=== PATIENT | male | born 1960 | race Caucasian/White ===

== ENCOUNTER → 2025-02-15 10:51 | Outpatient (BNVA) | payer MEDICAID, SELFPAY | PROVIDERS: Family Provider Counselor Professional; Referring Provider Family Medicine; Visit Provider Dermatology | DX: L82.1 Other seborrheic keratosis (principal); L72.0 Epidermal cyst; L57.8 Other skin changes due to chronic exposure to nonionizing radiation; D48.5 Neoplasm of uncertain behavior of skin; L57.0 Actinic keratosis | CPT/HCPCS: 11102; 17000; 99203 ==

== ENCOUNTER → 2025-03-12 16:25 | Outpatient (BNVA) | payer MEDICAID, SELFPAY | PROVIDERS: Family Provider Counselor Professional; Visit Provider Dermatology | DX: C44.319 Basal cell carcinoma of skin of other parts of face (principal) | CPT/HCPCS: 99212 ==

== ENCOUNTER → 2025-03-26 11:31 | Outpatient (BNVA) | payer MEDICAID, SELFPAY | PROVIDERS: Family Provider Counselor Professional; Visit Provider Dermatology | DX: L20.9 Atopic dermatitis, unspecified (principal); L29.89 Other pruritus; L23.1 Allergic contact dermatitis due to adhesives | CPT/HCPCS: 99213 ==

== ENCOUNTER → 2025-04-09 11:19 | Outpatient (BNVA) | payer MEDICAID, SELFPAY | PROVIDERS: Family Provider Counselor Professional; Visit Provider Dermatology | DX: C44.319 Basal cell carcinoma of skin of other parts of face (principal) | CPT/HCPCS: 99213 ==

== ENCOUNTER 2025-10-03 11:30 | Emergency (ER) | payer MEDICARE, MEDICAID, SELFPAY ==
[2025-10-03 11:32] VITALS: BP 154/96; PULSE 98; RESP 18; TEMP 36.4; O2SAT 98
--- OUTSIDE RECORDS SUMMARY | 2025-10-03 11:38 | XMS_ITS | Clinical Summary ---
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
--- OUTSIDE RECORDS SUMMARY | 2025-10-03 11:38 | XMS_ITS | Clinical Summary ---
Author Organization [employer] Address [address] [place] [address] Phone Care Team Providers Care Service Observer Name Role Phone Gurdeep Uribe Primary Care Provider [phone] Allergies No known active allergies Medications doxycycline (Vibra-Tabs) 100 mg tablet Take 100 mg by mouth 2 (two) times a day. 03/05/2025 Active losartan (Cozaar) 25 mg tablet Take 25 mg by mouth 1 (one) time each day. 02/28/2025 Active aspirin 81 mg EC tablet Take 81 mg by mouth 1 (one) time each day. 01/31/2025 Active atorvastatin (Lipitor) 40 mg tablet Take 40 mg by mouth 1 (one) time each day. 02/28/2025 Active co-enzyme Q-10 30 mg capsule Take 400 mg by mouth 1 (one) time each day. Active cholecalciferol, vitamin D3, (VITAMIN D3 ORAL) Take 1 tablet by mouth 1 (one) time each day. Active cyanocobalamin (Vitamin B-12) 1,000 mcg tablet Take 1,000 mcg by mouth 1 (one) time each day. Active ibuprofen (Advil,Motrin) 200 mg tablet Take 200 mg by mouth if needed for mild pain (1-3). Active acetaminophen (Tylenol) 500 mg tablet Take 500 mg by mouth if needed for mild pain (1-3). Active nitroglycerin (Nitrostat) 0.[address] 0.3 mg under the tongue if needed for chest pain. Active Social History Tobacco Use Types Packs/Day Years Used Date Smoking Tobacco: Every Day Cigarettes 0.5 40.9 Started: 1984 Smokeless Tobacco: Never Tobacco Cessation:Ready to Q uit: Not Asked; Counseling Given: Not Answered Alcohol Use Standard Drinks/Week Comments Never 0 (1 standard drink = 0.6 oz pur e alcohol) PHQ-2 Answer Date Recorded Patient Health Questionnaire-2 Score 0 03/07/2025 [facility] - Mental Health Answer Date Recorde d Little interest or pleasure in doing things Not at all 03/07/2025 Feeling down, depressed, or hopeless Not at all 03/07/2025 Feeling of Stress Not on file 03/07/2025 Sex and Gender Information Value Date Recorded Sex Assigned at Not on file Legal Sex Male 3:06 PM CDT Gender Identity Not on file Sexual Orientation Not on file Last Filed Vital Signs Vital Sign Reading Time Taken Comments Blood Pressure 138/90 03/07/2025 3:53 PM CDT Pulse 94 03/07/2025 3:52 PM CDT Temperature 36.7 C (98.1 F) 03/07/2025 3:52 PM CDT Respiratory Rate 18 03/07/2025 3:52 PM CDT Oxygen Saturation 98% 03/07/2025 3:52 PM CDT Inhaled Oxygen Concentration - - Weight 87.5 kg (193 lb) 03/07/2025 3:52 PM CDT Height 182.9 cm (6') 03/07/2025 3:52 PM CDT Body Mass Index 26.18 03/07/2025 3:52 PM CDT Plan of Treatment Health Maintenance Due Date Last Done Comments CT Colonography 1960 Colonoscopy 1960 Colorectal Cancer Screening 1960 Creatinine Level 1960 FIT-DNA 1960 FIT 1960 FOBT 1960 Lipid Panel 1960 Potassium Level 1960 Sigmoidoscopy 1960 MMR Vaccines (1 of 1 - Stand arley series) 1961 DTaP,Tdap,and Td Vaccines (1 - Tdap) 1967 Varicella Vaccines (1 of 2 - 13+ 2-dose series) 1973 Diabetes Screening 1978 Social Drivers of Health (SDoH) 1978 Pneumococcal Vaccine: 50+ Ye ars (1 of 2 - PCV) 1979 Pneumococcal Vaccine (1 of 2 - PCV) 1979 [facility] Lung Cancer Screening ared Decision Making 2010 Zoster Vaccines (1 of 2) 2010 RSV Vaccines (1 - Risk 60-74 years 1-dose series) 2020 Medicare Initial Physical (I PPE) G0402 04/22/2025 Complete Fall Risk Assessment 2025 COVID-19 Vaccine (1 - 2023-2 5 season) 2025 Influenza Vaccine (#1) 2025 Depression Screening 03/08/2026 03/07/2025 HIB Vaccines Aged Out No longer eligi ble based on patient's age to complete this topic HPV Vaccines Aged Out No longer eligi ble based on patient's age to complete this topic Hepatitis A Vaccines Aged Out No long er eligible based on patient's age to complete this topic Hepatitis B Vaccines Aged Out No long er eligible based on patient's age to complete this topic IPV Vaccines Aged Out No longer eligi ble based on patient's age to complete this topic Meningococcal B Vaccine Aged Out No l onger eligible based on patient's age to complete this topic Meningococcal Vaccine Aged Out No amber kurt eligible based on patient's age to complete this topic Rotavirus Vaccines Aged Out No longer eligible based on patient's age to complete this topic Insurance MEDICARE Care Teams Service Observer Relationship Specialty Start Date End Date Gurdeep Uribe [address] [place], [place] [address] PCP - General 02/09/25
--- NOTE | 2025-10-03 11:42 | ECG_ITS ---
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 Measurements Intervals Caro Rate: 92 P: 47 AL: 149 QRS: -1 QRSD: 90 T: 74 QT: 335 QTc: 414 Interpretive Statements SINUS RHYTHM MINIMAL ST DEPRESSION [0.025+ mV ST DEPRESSION] No previous ECG available for comparison Electronically Signed On 10-05-2025 19:52:30 STOCK DRIVER by Christopher Ron M.D. [id number]
--- NOTE | 2025-10-03 11:52 | W.ED.RECABL ---
HPI - Recheck/Abnormal Lab/Rx General: Chief Complaint: Recheck/Abnormal Lab/Rx Stated Complaint: Dr Doss Blood Cloat R lower ABD R Lung Time Seen by Provider: 10/03/25 11:52 History of Present Illness: 65-year-old man with a history of coronary artery disease status post stents, hyperlipidemia and hypertension who presents emergency room at the urging of his primary provider. He had had a CT scan done that family reports he had a blood clots, a mass in his lung and possible masses in his liver. These images are not available to me. They tell me they were told to just go to the oncology clinic and check-in. They did not have anything scheduled. Apparently there were no records sent to the oncology clinic at this time. He has been having some chest pain and shortness of breath. No altered mental status. No fevers. He is not requiring any oxygen at this time and is not tachycardic. Related Data Home Medications ?Medication ?Instructions ?Recorded ?Confirmed aspirin 81 mg tablet,delayed 81 mg PO DAILY 10/03/25 10/03/25 release atorvastatin 40 mg tablet 40 mg PO BEDTIME 10/03/25 10/03/25 cholecalciferol (vitamin D3) 1,250 50,000 unit PO Q7D 10/03/25 10/03/25 mcg (50,000 unit) capsule coQ10 (ubiquinol) 200 mg capsule 400 mg PO BEDTIME 10/03/25 10/03/25 cyanocobalamin (vitamin B-12) 1,000 mcg PO DAILY 10/03/25 10/03/25 1,000 mcg tablet (Vitamin B-12) folic acid 1 mg tablet 1 mg PO DAILY 10/03/25 10/03/25 hydrocodone 10 mg-acetaminophen 1 tab PO Q6H PRN Pain 10/03/25 10/03/25 325 mg tablet losartan 25 mg tablet 25 mg PO QAM 10/03/25 10/03/25 nitroglycerin 0.4 mg sublingual 0.4 mg sublingual Q5M PRN Chest 10/03/25 10/03/25 tablet (Nitrostat) Pain prednisone 20 mg tablet See Rx Instructions .Route .COMPLEX 10/03/25 10/03/25 pregabalin 100 mg capsule 100 mg PO Q12H PRN nerve pain 10/03/25 10/03/25 Previous Rx's ?Medication ?Instructions ?Recorded apixaban 5 mg (74 tabs) tablets in 5 mg PO BID #74 ea 10/03/25 a dose pack (ascentify DVT-PE Treat 30D Start) oxycodone 5 mg tablet 5 mg PO Q8H PRN pain #20 tabs 10/03/25 polyethylene glycol 3350 17 17 g PO DAILY #510 grams 10/03/25 gram/dose oral powder (Miralax) Allergies Allergy/AdvReac Type Severity Reaction Status Date / Time No Known Allergies Allergy Verified 10/03/25 11:46 Review of Systems Narrative: Constitutional symptoms: Negative except as documented in HPI. Skin symptoms: Negative except as documented in HPI. Eye symptoms: Negative except as documented in HPI. ENMT symptoms: Negative except as documented in HPI. Respiratory symptoms: Negative except as documented in HPI. Cardiovascular symptoms: Negative except as documented in HPI. Gastrointestinal symptoms: Negative except as documented in HPI. Genitourinary symptoms: Negative except as documented in HPI. Musculoskeletal symptoms: Negative except as documented in HPI. Neurologic symptoms: Negative except as documented in HPI. Psychiatric symptoms: Negative except as documented in HPI. Endocrine symptoms: Negative except as documented in HPI. PFSH ED PFSH: Social History Smoking and tobacco/nicotine status: current every day tobacco/nicotine user Physical Exam Narrative: EXAM NARRATIVE: General: Alert, no acute distress. Skin: Warm, dry. Head: Normocephalic, atraumatic. Neck: Supple, trachea midline. Eye: Extraocular movements are intact. Ears, nose, mouth and throat: mucosa moist. Cardiovascular: Regular, Normal peripheral perfusion. Respiratory: Lungs are clear to auscultation, respirations are non-labored, breath sounds are equal, Symmetrical chest wall expansion. Gastrointestinal: Soft, Nontender, Non distended Musculoskeletal: Normal ROM, no deformity. Neurological: Alert and oriented, No focal neurological deficit observed. Psychiatric: Cooperative, appropriate mood & affect. Course Vital Signs: Vital signs: Vital Signs Temperature 97.6 F 10/03/25 11:32 Pulse Rate 88 10/03/25 13:08 Respiratory Rate 17 10/03/25 12:22 Blood Pressure 146/102 10/03/25 13:08 Pulse Oximetry 93 10/03/25 13:08 Oxygen Delivery Me thod Room Air 10/03/25 13:08 MDM - Recheck/Abnormal Lab/Rx Medical Decision Making Medical decision making Patient's reason for coming to the emergency room: Sent from clinic. Social determinants: Patient is retired. I reviewed the patient's medical record. Patient has no previous records at this institution. I reviewed the patient's current home meds Patient tells me he does not currently take many medications. He has not been placed on Eliquis yet. Alternate historians: History from family and from the patient. Differential diagnosis: including but not limited to and based on the above HPI, review of systems and physical exam: I am ordering a CT scan so that this will be available here for viewing. And make sure there is been no major changes. I currently only have the report from the family. Also basic lab work prior to initiating Eliquis therapy. Orders placed to evaluate differential diagnosis based on the above differential, HPI and physical exam Lab Review: Laboratory results were reviewed and interpreted by myself the emergency room physician. Mild leukocytosis. No anemia. No renal failure. CT of the chest abdomen pelvis mild bilateral pulmonary embolism burden slightly improved from a couple days ago. Apparently these films from [facility] were available to the radiologist. Large neoplastic mass centered in the right upper lobe. Lymphadenopathy. Other findings as in the report. This was reviewed and interpreted by myself the emergency room physician. I also reviewed the radiology report. Assessment of risk: Level of risk: High risk patient. Multiple comorbidities. New diagnosis of cancer. Unestablished with either pulmonary or oncology. Hospitalization considerations: Patient is not requiring any oxygen and vitals are normal. He needs some pain medications for home. Reexamination: Patient remained stable. No increased work of breathing. No altered mental status. No focal motor deficits. I spoke extensively with the patient's family and the patient about the steps needed to be done next. First starting on Eliquis and he will need to be on this for couple of weeks before he can have bronchoscopy and biopsy. After biopsy he will need to see oncology. Consultation: I spoke with Dr. Escalera with oncology. He is now aware of the patient and recommends that he first go to pulmonology for biopsy. Consultation: I spoke with Dr. Javed with pulmonology. She will see the patient later this week to establish and schedule bronchoscopy and biopsy after the patient has been on anticoagulation for couple of weeks Assessment and plan: Lung mass Pulmonary embolism Liver metastatic disease ?Morphine, Zofran, oxycodone in the emergency room first dose of Eliquis as well - Discharged home - Discussed plan with patient. Answered any questions. - Evaluation and treatment of this problem were appropriate in the emergency setting. Lab Data 10/03/25 12:00 10/03/25 12:00 Radiology Impressions Chest/Abdomen/Pelvis CT 10/03/25 11:57 IMPRESSION: 1. Mild bilateral pulmonary embolic burden. Slightly improved since the prior CT of 10/01/2025. 2. No RIGHT heart strain. 3. Large neoplastic mass centered in the RIGHT upper lobe measures 7.2 x 5.0 x 6.1 cm. This was recently described on 10/01/2025 without change. There is extension into the hilum and circumferential encasement of the hilar structures. 4. Mediastinal and hilar lymphadenopathy. 5. Highly suspicious for hepatic metastasis. 6. Extensive bone metastasis. Largest metastatic sites involve the iliac crest, sacrum and several vertebral bodies including T8, L2, L5, S1 and S2. 7. Dense atherosclerotic calcification of the aorta and origins of the SMA and celiac axis. Suspect component of stenosis at the SMA. Laboratory Results WBC 13.90 10^3/uL (3.29-11.43) H 10/03/25 12:00 RBC 4.23 10^6/uL (3.85-5.65) 10/03/25 12:00 Hgb 13.10 g/dL (11.27-16.99) 10/03/25 12:00 Hct 40.9 % (37-53) 10/03/25 12:00 MCV 96.7 fl (82-101) 10/03/25 12:00 MCH 31.0 pg (27-33) 10/03/25 12:00 MCHC 32.0 g/dL (30-55) 10/03/25 12:00 RDW 15.6 % (12.1-15.1) H 10/03/25 12:00 Plt Count 560 10^3/cmm (157-399) H 10/03/25 12:00 MPV 8.9 fL (7.4-10.4) 10/03/25 12:00 Neut % (Auto) 74.6 % 10/03/25 12:00 Lymph % (Auto) 17.0 % 10/03/25 12:00 [place] % (Auto) 6.9 % 10/03/25 12:00 Eos % (Auto) 0.5 % 10/03/25 12:00 Baso % (Auto) 0.3 % 10/03/25 12:00 Neut # (Auto) 10.37 10^3/uL (1.8-7.7) H 10/03/25 12:00 Lymph # (Auto) 2.4 10^3/uL (0.8-4.8) 10/03/25 12:00 [place] # (Auto) 1.0 10^3/uL (0.2-0.9) H 10/03/25 12:00 Eos # (Auto) 0.1 10^3/uL (0.0-0.8) 10/03/25 12:00 Baso # (Auto) 0.0 10^3/uL (0.0-0.1) 10/03/25 12:00 Nucleated RBC % (auto) 0 % 10/03/25 12:00 Nucleated RBCs # 0.0 /100WBC 10/03/25 12:00 PT 12.90 SECONDS (12.1-14.9) 10/03/25 12:00 INR 0.91 (0.8-1.2) 10/03/25 12:00 APTT 27.5 SECONDS (23.9-36.7) 10/03/25 12:00 Sodium 139 mmol/L (136-145) 10/03/25 12:00 Potassium 4.8 mmol/L (3.5-5.1) 10/03/25 12:00 Chloride 102 mmol/L (98-107) 10/03/25 12:00 Carbon Dioxide 22 mmol/L (22-29) 10/03/25 12:00 Anion Gap 19.8 (5-19) H 10/03/25 12:00 BUN 16 mg/dL (8-23) 10/03/25 12:00 Creatinine 0.9 mg/dL (0.7-1.2) 10/03/25 12:00 GFR Calculation 84.7 mL/min (90-130) L 10/03/25 12:00 Glucose 110 mg/dL (65-115) 10/03/25 12:00 Calculated Osmolality 290 mOsm/kg (285-295) 10/03/25 12:00 Calcium 10.3 mg/dL (8.5-10.5) 10/03/25 12:00 Total Bilirubin 0.3 mg/dL (0.15-1.2) 10/03/25 12:00 AST 12 U/L (0-40) 10/03/25 12:00 ALT 16 U/L (0-41) 10/03/25 12:00 Alkaline Phosphatase 382 U/L (40-130) H 10/03/25 12:00 Total Protein 8.1 g/dL (6.6-8.7) 10/03/25 12:00 Albumin 4.3 g/dL (3.5-5.2) 10/03/25 12:00 Globulin 3.8 g/dL (1.3-4.6) 10/03/25 12:00 All radiology interpretation(s) finalized by discharge Discharge Plan Discharge Patient Disposition: Home Clinical Impression: Pulmonary embolism, Lung mass Condition: Stable Prescriptions: New oxycodone 5 mg tablet 5 mg PO Q8H PRN (Reason: pain) Qty: 20 0RF Eliquis DVT-PE Treat 30D Start 5 mg (74 tabs) tablets,dose pack 5 mg PO BID Qty: 74 0RF Rx Instructions: 2 tabs (10 mg) BID x 7 days, then 1 tab BID polyethylene glycol 3350 [Miralax] 17 gram/dose powder 17 g PO DAILY Qty: 510 0RF Rx Instructions: Take 1 scoop daily while taking pain medications. No Action atorvastatin 40 mg tablet 40 mg PO BEDTIME prednisone 20 mg tablet See Rx Instructions .ROUTE .COMPLEX Rx Instructions: TAKE 3 TABLETS BY MOUTH ONCE DAILY IN THE MORNING FOR 3 DAYS, THEN 2 TABS IN THE MORNING FOR 3 DAYS, THEN 1 TAB IN THE MORNING FOR 3 DAYS, THEN ONE-HALF TAB IN THE MORNING FOR 3 DAYS, AND THEN STOP cyanocobalamin (vitamin B-12) [Vitamin B-12] 1,000 mcg Tablet 1,000 mcg PO DAILY hydrocodone-acetaminophen 10-325 mg tablet 1 tab PO Q6H PRN (Reason: Pain) aspirin 81 mg tablet,delayed release (DR/EC) 81 mg PO DAILY losartan 25 mg tablet 25 mg PO QAM nitroglycerin [Nitrostat] 0.4 mg Tablet, Sublingual 0.4 mg SUBLINGUAL Q5M PRN (Reason: Chest Pain) Rx Instructions: do not exceed 3 doses per episode folic acid 1 mg tablet 1 mg PO DAILY pregabalin 100 mg capsule 100 mg PO Q12H PRN (Reason: nerve pain) cholecalciferol (vitamin D3) 1,250 mcg (50,000 unit) capsule 50,000 unit PO Q7D coQ10 (ubiquinol) 200 mg Capsule 400 mg PO BEDTIME Discharge Orders: Discharge ED (Routine); Ordered 10/03/25 Ordered By: Yaneli Loo Referrals: Flo Javed MD [Physician, Pulmonology] - 1-3 days Referral Note: Please call for follow-up appointment with pulmonology. Naomi Schroeder LPC [Family Provider, Psychology] Patsy Escalera MD [Hospitalist, Oncology] Referral Note: Please call for follow-up appointment with oncology. You may not need to be seen until after your biopsy but go ahead and schedule now Discharge Diet: Usual diet Discharge Activity: Increase activity as tolerated Patient Instructions: Apixaban (By mouth) (Eliquis), Pulmonary Embolism (ED), Opioid Safety, Pain Management, Patient Portal & Niko Instructions Activity Restrictions/Additional Instructions: Thank you for choosing [facility] for your healthcare needs today. You have been screened and evaluated and felt safe for discharge. Health conditions do change or evolve sometimes and as such it is important that you follow up with your Primary Doctor to be re checked, 3-5 days is a general good time frame for follow up. You are always welcome to return to the ED for re assessment if your symptoms are worsening or you have new concerns Print Language: Senegalese Coding Level of Care Code ED Appetizer Packer for Gerri Copeland
--- NOTE | 2025-10-03 11:57 | CT_ITS ---
WS: [id number] CTA CHEST WITH CT ABDOMEN AND PELVIS. HISTORY: Short of breath. Possible malignancy. TECHNIQUE: CT angiogram is performed through the chest. Additional imaging is performed through the abdomen and pelvis with IV contrast. Sagittal and coronal reformats have been submitted. MIP imaging also reviewed. All CT scans at [facility] use at least one of these dose optimization techniques: automated exposure control; mA and/or kV adjustment per patient size (includes targeted exams where dose is matched to clinical indication); or iterative reconstruction. Contrast: Omnipaque 350; 95 cc IV. DLP: 995.30 mGy.cm COMPARISON: 10/01/2025 Chest CTA: Good opacification of the pulmonary arteries. Patient has known pulmonary emboli described on 10/01/2025. Pulmonary arteries are normal size. No central pulmonary emboli. Scattered pulmonary emboli are noted predominantly in the segmental and subsegmental branches of the RIGHT lower lobe. Small embolic burden in the upper lung holder. Mild improvement in the embolic burden since 10/01/2025. Normal size pulmonary artery. No RIGHT heart strain is evident. No pericardial or pleural effusions. Reidentified mediastinal and hilar lymphadenopathy. Paratracheal and aortopulmonary window lymph nodes. Largest lymph node in the AP window is 2.6 cm. Subcarinal lymph node 2.3 cm. Bilateral hilar lymphadenopathy. Large mass centered in the RIGHT upper lobe extending along the fissure and into the superior segment RIGHT lower lobe. Mass measures 7.2 x 5.0 x 6.1 cm and extends into the RIGHT hilum. There is encasement of the RIGHT bronchovascular structures. Small bilateral perifissural nodules. Mild pleural thickening right thorax. Abdomen CT: Normal size liver. There is hypodense lesions in the liver suspicious for metastatic disease. The most concerning in the RIGHT lobe measures 1.6 x 1.4 cm. There are a few additional scattered hypodensities which could be metastatic sites or cysts. Portal vein is normal. No intrahepatic duct dilatation. Normal gallbladder. Normal spleen. No adrenal mass. There is very tiny possible developing nodule in the LEFT adrenal gland. Normal pancreas. No pancreatic duct dilatation. No renal obstruction or mass. Moderate atherosclerosis aorta. Calcifications at the origin of the celiac axis and SMA. Stenosis at the SMA suspected. No GI tract obstruction. There is no ascites or adenopathy identified in the abdomen or pelvis. Pelvic CT: No free fluid. Prostate gland enlargement and heterogeneity. Negative urinary bladder. Extensive bony metastasis is identified. Destructive bone lesion in the LEFT ilium measures 4.9 x 2.8 cm. There is a solid soft tissue component with destruction of the bone. Smaller destructive bone lesion in the RIGHT ilium. Metastatic disease posterior S1 and S2. L2 metastatic changes. There is loss of the normal cortex of the superior and inferior endplates. L5 LEFT lateral vertebral body metastatic site with extension into the posterior element. T8 metastasis with osseous destruction. Sternum appears intact. CT/CT angio chest w abd pel w con IMPRESSION: 1. Mild bilateral pulmonary embolic burden. Slightly improved since the prior CT of 10/01/2025. 2. No RIGHT heart strain. 3. Large neoplastic mass centered in the RIGHT upper lobe measures 7.2 x 5.0 x 6.1 cm. This was recently described on 10/01/2025 without change. There is ext ension into the hilum and circumferential encasement of the hilar structures. 4. Mediastinal and hilar lymphadenopathy. 5. Highly suspicious for hepatic metastasis. 6. Extensive bone metastasis. Largest metastatic sites involve the iliac crest , sacrum and several vertebral bodies including T8, L2, L5, S1 and S2. 7. Dense atherosclerotic calcification of the aorta and origins of the SMA and celiac axis. Suspect component of stenosis at the SMA.
[2025-10-03 12:12] LABS: Hematocrit 40.9 % (37-53); Hemoglobin 13.10 g/dL (11.27-16.99); Mean Corpuscular HGB Conc 32.0 g/dL (30-55); Mean Corpuscular Hemoglobin 31.0 pg (27-33); Mean Corpuscular Volume 96.7 fl (82-101); Nucleated Red Blood Cells % 0 %; Platelet Count 560 10^3/cmm (157-399); Red Blood Count 4.23 10^6/uL (3.85-5.65); White Blood Count 13.90 10^3/uL (3.29-11.43)
[2025-10-03] MEDS: ondansetron 2 mg/ML SDV 2 mL 4 MG IVP (12:21)
[2025-10-03 12:22] VITALS: RESP 17; O2SAT 97
[2025-10-03 12:22] LABS: INR 0.91 (0.8-1.2); Prothrombin Time 12.90 SECONDS (12.1-14.9)
[2025-10-03] MEDS: morphine 4 mg/mL SDV 1 mL IVP (12:22)
[2025-10-03 12:23] LABS: Partial Thromboplastin Time 27.5 SECONDS (23.9-36.7)
[2025-10-03 12:27] LABS: Alanine Aminotransferase 16 U/L (0-41); Albumin Level 4.3 g/dL (3.5-5.2); Alkaline Phosphatase 382 U/L (40-130); Anion Gap 19.8 (5-19); Aspartate Amino Transferase 12 U/L (0-40); Blood Urea Nitrogen 16 mg/dL (8-23); Calcium 10.3 mg/dL (8.5-10.5); Carbon Dioxide 22 mmol/L (22-29); Chloride 102 mmol/L (98-107); Globulin 3.8 g/dL (1.3-4.6); Glucose 110 mg/dL (65-115); Osmolality Calculated 290 mOsm/kg (285-295); Potassium 4.8 mmol/L (3.5-5.1); Sodium 139 mmol/L (136-145); Total Protein 8.1 g/dL (6.6-8.7)
--- NOTE | 2025-10-03 12:27 | PC.PHAR ---
Pt states he has not taken any medications for a long time since they just keep giving him more pills to take. Pt presented a medication list that matches most of the medications he has had filled at [facility] in [place] [phone]. Pt has his rx bottle for [place] 10-325 and he has taken it today, but says it doesn't do any good.
[2025-10-03] MEDS: iohexol 350 mg/mL 500 mL Btl (per mL) IV (12:40)
[2025-10-03 13:08] VITALS: BP 146/102; PULSE 88; O2SAT 93
[2025-10-03] MEDS: oxyCODONE 5 mg IR Tab/Cap 10 MG PO (14:04)
[2025-10-03 14:09] VITALS: BP 150/99; PULSE 89; O2SAT 96
== END 2025-10-03 14:11 | disposition home or self-care (01) ==
PROVIDERS: Family Medicine; Emergency Provider Emergency Medicine; Family Provider Counselor Professional
DX: I26.99 Other pulmonary embolism without acute cor pulmonale (principal); R91.8 Other nonspecific abnormal finding of lung field; Z79.82 Long term (current) use of aspirin; Z72.0 Tobacco use; E78.5 Hyperlipidemia, unspecified; I25.10 Atherosclerotic heart disease of native coronary artery without angina pectoris; Z95.5 Presence of coronary angioplasty implant and graft
CPT/HCPCS: 71275; 74177; 80053; 85025; 85610; 85730; 93005; 96374; 96375; 99285; J2270; J2405; J9999

== ENCOUNTER → 2025-10-09 15:26 | Outpatient (BNVA) | payer MEDICARE, MEDICAID, SELFPAY | PROVIDERS: Family Provider Counselor Professional; Visit Provider Internal Medicine | DX: R91.8 Other nonspecific abnormal finding of lung field (principal); F17.200 Nicotine dependence, unspecified, uncomplicated; Z86.711 Personal history of pulmonary embolism; Z79.01 Long term (current) use of anticoagulants; Z79.82 Long term (current) use of aspirin | CPT/HCPCS: 99204; Q3014 ==

== ENCOUNTER 2025-10-19 10:57 | Outpatient (CLI) | payer MEDICARE, MEDICAID, SELFPAY ==
--- NOTE | 2025-10-19 11:00 | CT_ITS ---
WS: [id number] CT CHEST TECHNIQUE: Noncontrast CT of the chest with coronal and sagittal reformatted images. CLINICAL INFORMATION: Upcoming ION COMPARISON: CTA 10/03/[address] 10/01/2025 DLP: All CT scans at [facility] use at least one of these dose optimization techniques: automated exposure control; mA and/or kV adjustment per patient size (includes targeted exams where dose is matched to clinical indication); or iterative reconstruction. FINDINGS: Again seen is the large lung mass in the RIGHT upper lobe measuring 6.5 x 7.5 cm similar to the recent studies. This extends along the RIGHT fissure and to the RIGHT hilum with circumferential encasement of the RIGHT hilum. Involvement of the RIGHT distal mainstem and upper lobe bronchi. Involvement of the bronchus intermedius. Bilateral perifissural nodules. Again seen is mediastinal and hilar lymphadenopathy. Enlarged paratracheal and AP window lymph nodes. Subcarinal lymphadenopathy. Partially visualized hepatic metastasis. Bony metastasis again seen T8 vertebral body and upper lumbar spine L2. Dense vascular calcification. Aortic calcification. Coronary calcification. Adrenal glands are normal. Small esophageal hiatal hernia. No axillary lymphadenopathy. Mild chronic emphysematous changes. CT/CT chest ION (PULM ONLY) [id number] IMPRESSION: Images obtained for 3D navigational bronchoscopy purposes
== END 2025-10-19 10:58 | disposition home or self-care (01) ==
LOC: RAD 10:59
PROVIDERS: PCP Family Medicine; Visit Provider Internal Medicine
DX: R91.8 Other nonspecific abnormal finding of lung field (principal); R59.0 Localized enlarged lymph nodes; I70.0 Atherosclerosis of aorta; I25.10 Atherosclerotic heart disease of native coronary artery without angina pectoris; K44.9 Diaphragmatic hernia without obstruction or gangrene; J43.9 Emphysema, unspecified; C79.51 Secondary malignant neoplasm of bone
CPT/HCPCS: 71250

== ENCOUNTER 2025-10-22 06:00 | Day surgery (SDC) | payer MEDICARE, MEDICAID, SELFPAY ==
[2025-10-22] VITALS (11 sets, daily range): BP systolic 90–159; BP diastolic 62–98; PULSE 88–98; RESP 13–20; TEMP 36.4–37; O2SAT 97–100; BMI 25.0
--- NOTE | 2025-10-22 06:50 | SC_ITS ---
WS: [id number] Exam: C-arm FL for Bronchoscopy Date/Time of Exam: 10/22/2025 6:50 AM Reason For Exam: ION DLP: Single AP C-arm image of the upper RIGHT chest is submitted. The image was obtained for intraoperative purposes.
[2025-10-22 07:05] LABS: Hematocrit 39.6 % (37-53); Hemoglobin 12.80 g/dL (11.27-16.99); Mean Corpuscular HGB Conc 32.3 g/dL (30-55); Mean Corpuscular Hemoglobin 30.4 pg (27-33); Mean Corpuscular Volume 94.1 fl (82-101); Nucleated Red Blood Cells % 0 %; Platelet Count 597 10^3/cmm (157-399); Red Blood Count 4.21 10^6/uL (3.85-5.65); White Blood Count 14.31 10^3/uL (3.29-11.43)
[2025-10-22 07:20] LABS: INR 0.93 (0.8-1.2); Prothrombin Time 13.10 SECONDS (12.1-14.9)
--- NOTE | 2025-10-22 07:50 | ANES.PREANE2 ---
Pre-Anesthetic Assessment Height/Weight: Height 1.85 m Weight 86.183 kg Temp Pulse Resp BP Pulse Ox O2 Del Method 98.6 F 98 18 159/98 99 Room Air 10/22/25 06:42 10/22/25 06:42 10/22/25 06:42 10/22/25 06:42 10/22/25 06:42 10/22/25 06:42 Operation Date: 10/22/25 08:00 Proposed Procedures p Ion - Ion Bronch w/ EBUS(Not Applicable) - Flo Javed MD s Bronchoscopy(Not Applicable) - Flo Javed MD s Ebus(Not Applicable) - Flo Javed MD Familial anesthetic complications: None Was Beta José Luis taken within 24 hours: N/A Was Clonidine taken within 24 hours: N/A Last intake: Intake Last Liquid Date 10/21/25 Last Liquid Time 16:00 Last Solid Date 10/21/25 Last Solid Time 16:00 Social Tobacco and No alcohol Exam alert, oriented x 3, clear to auscultation bilaterally and regular rate & rhythm Airway Mallampati: Class I Dentition: false CV/HEM Coronary Artery Disease (stents in 2022) and Hypertension Metabolic Hyperlipidemia Anesthetic Plan ASA status: 3 Anesthesia: General Risk of > 500 ml blood loss (7ml/kg in children): No Medications/Allergies Home Medications ?Medication ?Instructions ?Recorded ?Confirmed ?Last Taken ?Type apixaban 5 mg (74 tabs) tablets in 5 mg PO BID #74 ea 10/03/25 10/16/25 10/16/25 Rx a dose pack ([employer] DVT-PE Treat 30D Start) aspirin 81 mg tablet,delayed 81 mg PO DAILY 10/03/25 10/16/25 10/16/25 History release atorvastatin 40 mg tablet 40 mg PO BEDTIME 10/03/25 10/16/25 10/15/25 History coQ10 (ubiquinol) 200 mg capsule 400 mg PO BEDTIME 10/03/25 10/16/25 10/15/25 History cyanocobalamin (vitamin B-12) 1,000 mcg PO DAILY 10/03/25 10/16/25 10/16/25 History 1,000 mcg tablet (Vitamin B-12) folic acid 1 mg tablet 1 mg PO DAILY 10/03/25 10/16/25 3 Weeks Ago History ~09/25/25 hydrocodone 10 mg-acetaminophen 1 tab PO Q6H PRN Pain 10/03/25 10/16/25 10/16/25 History 325 mg tablet losartan 25 mg tablet 25 mg PO QAM 10/03/25 10/16/25 10/16/25 History nitroglycerin 0.4 mg sublingual 0.4 mg sublingual Q5M PRN Chest 10/03/25 10/16/25 Unknown History tablet (Nitrostat) Pain oxycodone 5 mg tablet 5 mg PO Q8H PRN pain #20 tabs 10/03/25 10/16/25 2 Weeks Ago Rx ~10/02/25 polyethylene glycol 3350 17 17 g PO DAILY #510 grams 10/03/25 10/16/25 10/14/25 Rx gram/dose oral powder (Miralax) pregabalin 100 mg capsule 100 mg PO Q12H PRN nerve pain 10/03/25 10/16/25 10/15/25 History Allergies Allergy/AdvReac Type Severity Reaction Status Date / Time No Known Allergies Allergy Verified 10/16/25 15:08 Current Medications Generic Name Dose Route Start Last Admin Trade Name Freq PRN Reason Stop Dose Admin Sodium Chloride 1,000 mls @ 15 mls/hr 10/22/25 06:27 10/22/25 06:53 Sodium Chloride 0.9% IV 10/23/25 06:26 15 mls/hr .Q24H PRN Administration COLONOSCOPY FLUIDS PFSH Anesthesia Social History Smoking and tobacco/nicotine status: current every day tobacco/nicotine user (PPD) Data Anesthesia 10/22/25 06:55 Short CBC 10/22/25 Range/Units 06:55 WBC 14.31 H (3.29-11.43) 10^3/uL Hgb 12.80 (11.27-16.99) g/dL Hct 39.6 (37-53) % MCV 94.1 (82-101) fl Plt Count 597 H (157-399) 10^3/cmm Neut % (Auto) 69.6 % Neut # (Auto) 9.97 H (1.8-7.7) 10^3/uL Coags 10/22/25 06:55 PT 13.10 INR 0.93
--- NOTE | 2025-10-22 08:32 | W.PM.OPSUD ---
Surgery/Procedure H&P Update DATE OF PROCEDURE: October 22, 2025 DATE H&P PERFORMED: 10/09/25 PLANNED PROCEDURE: Surgery/Procedure H&P Update DATE OF PROCEDURE: 10/22/2025 DATE H&P PERFORMED: 10/09/25 CHANGES TO PREVIOUS DOCUMENTATION: Patient was seen and examined. No significant changes since I saw in the clinic. We will proceed with bronchoscopy as we planned. 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 - Flo Javed MD s Ion Robotic Assisted Bronchoscopy - Flo Javed MD s Ebus - Flo Javed MD Operation Date: 10/22/25 08:00 Proposed Procedures p Ion - Ion Bronch w/ EBUS(Not Applicable) - Flo Javed MD s Bronchoscopy(Not Applicable) - Flo Javed MD s Ebus(Not Applicable) - Flo Javed MD
[2025-10-22] MEDS: EPINEPHrine 1 MG in sodium chloride 0.9% (100 ml) 19 ML 10 MG XX (10:15)
--- NOTE | 2025-10-22 10:24 | XR_ITS ---
WS: [id number] Exam: XR chest 1V portable [id number] Date/Time of Exam: 10/22/2025 10:27 AM Reason For Exam: IN PACU POST ION. APPROX 1035 The lungs are fully expanded. Prominent RIGHT upper lobe mass as previously described on recent chest CT. Heart size is normal. The mediastinum is normal in contour. No pleural effusions. No infiltrates. Bony structures are intact as visualized. XR/XR chest 1V portable [id number] IMPRESSION: 1. Large RIGHT upper lobe mass as recently described on CT. 2. No acute infiltrate or other significant finding.
--- NOTE | 2025-10-22 10:34 | W.PM.BPONFUL ---
Procedure: Robotic bronchoscopy with complete mediastinal staging Attending: Flo Javed MD Indication: Right upper lobe mass and mediastinal/hilar lymphedenopathy Medications: Lidocaine 2% (8 cc) applied to the tracheobronchial tree Anesthesia: General anesthesia per anesthesia team Procedure: Pre-Anesthesia Assessment [place] Protocol: Pre-procedure Verification: Prior to the procedure, the patient's identity was confirmed using full name, date of , and medical record number. Identity verification included a review of all relevant medical records, history, physical examination, medications, allergies, and previous anesthesia tolerance. Risks, benefits, sedation options, and associated risks were reviewed with the patient, and informed consent was obtained after addressing all questions. Time-Out: Immediately before the procedure, a time-out was conducted to confirm patient identification, procedure details, consent, image labeling, and the need for prophylactic antibiotics. This was verified by the physician, nurse, anesthesiologist, and laborer construction or leak gang. Outcome: The procedure was completed without difficulty, and the patient tolerated it well. Findings: A thorough airway exam was performed after passage of the bronchoscope. The trachea was anatomically normal. The right sided airway was anatomically normal without endobronchial lesions. No secretions. The left sided airway was anatomically normal without endobronchial lesions. No secretions. The prior bronchoscope was removed from the airway. The [employer] Robotic Bronchoscopy platform was moved into place. The robotic bronchoscope was inserted into the endotracheal tube with care. The position of the bronchoscope was registered to a pre-existing CT scan using shape-sensing virtual bronchoscopy technology (33267). We navigated towards the lesion in the left upper lobe mass using a pre-planned route using virtual bronchoscopy Prior to sampling, confirmation of lesion location was done using: - Radial ultrasound probe with a concentric view (83827), - Fluroscopy with a tool overlying the lesion on at least one visual plane. - Virtual target located directly within the path of intended biopsy direction on EMN, After confirming our location, we proceeded to sampling. Transbronchial needle aspiraiton (TBNA) was performed of the lesion using the Clutch TBNA 21-gauge needle. A total of 8 passes were formed. (62864) Transbronchial biopsies of the lesion were performed using the captura 1.8 mm forceps). A total of 4 samples were obtained. (03601) A bronchoalveolar lavage was performed of the lobe containing the target lesion with 60 mL of saline instilled and 10 mL of effluent returned. (79080) The prior bronchoscope was removed from the airway and the EBUS scope was inserted. A complete curvilinear EBUS procedure was performed of the following lymph nodes: Level 11R station was identified. No nodes met size criteria for biopsy. Level 4R station was identified. No nodes met size criteria for biopsy. Level 7 station was identified with the EBUS scope at the medial LMSB/RMSB and/5 passes were made using a 23G Olympus TBNA needle. Level 4L station was identified. No nodes met size criteria for biopsy. Level 11L station was identified with the EBUS scope at the medial LMSB/RMSB and/3 passes were made using a 23G Olympus TBNA needle. [place] Bleeding Scale Grade 1: Suctioning <1 minute. Bleeding of no clinical consequence to patient or provider. Following completion of all diagnostic and therapeutic procedures, hemostasis was verified. The scope was removed and procedure concluded. In summary, the following procedures were performed: 60599 BAL, (Bronchoalveolar Lavage), 77764 TBBX, (Transbronchial biopsies, first lobe), 72449 pTBNA, (peripheral transbronchial needle aspiration), 80975 cEBUS 1-2 lesions, (Central curvelinear EBUS 1-2 lesions), 96096 pEBUS (peripheral/radial EBUS) , 13496 Roman, (Navigation bronchoscopy, [facility], [facility]), Flo Javed MD Pulmonary and Critical Care
[2025-10-22 11:29] LABS: Cyto Order Verification Order Verified
--- NOTE | 2025-10-22 12:35 | ANE.PACU2 ---
Inpatient post-anesthesia follow up: Airway intact: Yes Vital signs: Temperature 97.8 F Pulse Rate 92 Respiratory Rate 18 Blood Pressure 116/82 Pulse Oximetry 98 Oxygen Delivery Me thod Room Air Oxygen Flow Rate 10 Fraction of Inspir ed Oxygen Hydration adequate: Yes Nausea and vomiting: No Pain level: 1 Mental status: Baseline
[2025-10-24 13:54] LABS: P. Jirovecii DNA QL PCR Not Detected (Not Detected)
[2025-10-24 18:13] LABS: Aspergillus AG,EIA NOT DETECTED; Aspergillus AG,EIA, Index <0.50
[2025-10-25 13:37] LABS: Lymphoma Profile (BBPL) See Report
[2025-10-25 18:25] LABS: Blastomyces Antigen Interpret NEGATIVE; Blastomyces Antigen Result None Detected; Histoplasma Antigen (Quant) None Detected; Histoplasma Antigen Interpreta NEGATIVE; Histoplasma Antigen Specimen LAVAGE,BRONCHIAL
== END 2025-10-22 12:35 | disposition home or self-care (01) ==
PROVIDERS: PCP Family Medicine; Visit Provider Internal Medicine
PROC: 0BJ08ZZ Inspection of Tracheobronchial Tree, Via Natural or Artificial Opening Endoscopic (ICD-10-PCS; CPT 31622; principal; 2025-10-22 08:00)
PROC: 0BJ08ZZ Inspection of Tracheobronchial Tree, Via Natural or Artificial Opening Endoscopic (ICD-10-PCS; CPT 31622; 2025-10-22 08:00)
PROC: BB4BZZZ Ultrasonography of Pleura (ICD-10-PCS; 2025-10-22 08:00)
DX: C34.11 Malignant neoplasm of upper lobe, right bronchus or lung (principal); C77.9 Secondary and unspecified malignant neoplasm of lymph node, unspecified; I25.10 Atherosclerotic heart disease of native coronary artery without angina pectoris; I10 Essential (primary) hypertension; E78.5 Hyperlipidemia, unspecified; Z79.82 Long term (current) use of aspirin; Z79.891 Long term (current) use of opiate analgesic; F17.200 Nicotine dependence, unspecified, uncomplicated
CPT/HCPCS: 31624; 31628; 31629; 31652; 31654; 36415; 71045; 76000; 85025; 85610; 87015; 87070; 87102; 87116; 87205; 87206; 87305; 87385; 87449; 87798; 87801; 88112; 88184; 88185; 88305; 88342; A9270; J0169; J2371; J2405; J2704; J3010; J3490; J7030; J9999

== ENCOUNTER → 2025-10-26 11:12 | Outpatient (BNVA) | payer MEDICARE, MEDICAID, SELFPAY | PROVIDERS: PCP Family Medicine; Visit Provider Internal Medicine | DX: C34.91 Malignant neoplasm of unspecified part of right bronchus or lung (principal); Z51.89 Encounter for other specified aftercare; R91.8 Other nonspecific abnormal finding of lung field; J43.9 Emphysema, unspecified; F17.210 Nicotine dependence, cigarettes, uncomplicated; Z79.01 Long term (current) use of anticoagulants; Z79.82 Long term (current) use of aspirin; Z86.711 Personal history of pulmonary embolism | CPT/HCPCS: 99214; Q3014 ==

== ENCOUNTER 2025-11-21 13:28 | Oncology outpatient (recurring) (ONCR) | payer MEDICARE, MEDICAID, SELFPAY ==
--- NOTE | 2025-11-01 13:50 | N.ONRAD NP_ITS ---
Radiation Oncology New Patient Visit Patient: Mark Carrera MR#: [id number] : 1960 Age: 65 Sex: Male Dictated by: Dr. 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 Chief Complaint / History of Present Illness: Patient is a 65-year-old gentleman who actually presented when he developed chest pain. He also had had left hip and leg pain for quite some time. He is not really sure how long but the chest pain began about a month prior to presentation. At the time of his presentation he was found to have multiple bilateral pulmonary emboli as well as a right upper lobe mass that was 7.2 x 6.1 cm in size with associated hilar and mediastinal adenopathy. He had liver metastasis and bone metastasis in T8, L2, L5 and S1-S2 as well as the left ilium. He is seen today in consultation to consider treatment to his bony metastasis which are actually causing him not only pain but left leg weakness. Current Medications: apixaban (Eliquis DVT-PE Treat 30D Start) 5 mg PO BID aspirin 81 mg PO DAILY atorvastatin 40 mg PO BEDTIME coQ10 (ubiquinol) 400 mg PO BEDTIME cyanocobalamin (vitamin B-12) (Vitamin B-12) 1,000 mcg PO DAILY folic acid 1 mg PO DAILY hydrocodone- acetaminophen 10-325 mg 1 tab PO Q6H PRN losartan 25 mg PO QAM nitroglycerin (Nitrostat) 0.4 mg sublingual Q5M PRN oxycodone 5 mg PO Q8H PRN polyethylene glycol 3350 (Miralax) 17 grams PO DAILY PRN pregabalin 100 mg PO Q12H PRN Allergies: No known allergies Medical History: No history of collagen vascular disease. No previous radiation therapy. Non-small cell cancer of right lung Coronary artery disease with stent placement pulmonary embolism hypercholesterolemia and hypertension Surgical History: Family History: Social History: Smoking and tobacco/nicotine status: current every day tobacco/nicotine user (1/2 x24 years. Most 1 1/2 ppd) Current Complaints / Review of Systems: . Vital Signs: Performed on 11/01/2025 1:07 PM BMI - 24.804 kg/m2 (high), Height - 73 in, Weight - 188 lbs, Temperature - 98.7 f, Pulse - 98 /min, Respiration - 17 /min, O2 Sat - 98 %, Pain - 5, Fatigue - 0 and BP - 112/ 70 mm(hg). Physical Exam: General: Patient is sitting comfortably in the chair. He is alone today HEENT: Normocephalic atraumatic. Pupils are equal, sclera clear, extraocular muscles intact Pulmonary: Respiratory rate is regular nonlabored Cardiovascular: Regular rate and rhythm Abdomen: Minimally protuberant and android pattern Thorax: He has no palpable areas of tenderness. He describes pain from the left ischium to the hip that radiates down his leg. Neurological: Alert and orient x 3. Gait and speech within normal limits. Left leg has a 4 out of 5 plus in comparison to the right. 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 We talked about the findings on his scans. We reviewed the use of radiation for bony metastasis. We talked about the simulation process. We reviewed a daily treatment regiment. We discussed the risks and side effects both acute and long-term. At this point he is agreed to proceed. He would like to get started soon as possible secondary to the pain. He will undergo simulation today and will begin his treatment shortly thereafter with a plan for 2-week course to be finished before the end of the year so that he can start immunotherapy if indicated. Signed by: 11/01/2025 1:49:23 PM <<Signature on File>> Time spent with patient:45 CPT Code: CPT Code:
--- NOTE | 2025-11-06 14:55 | ONCRAD TMN_ITS ---
Radiation Oncology Weekly Treatment Management Patient: Deandre Flores> MR#: [id number] : 1960> Attending Physician: Mark Hitchcock Date of Service: 11/06/2025 Referring Physician(s) : Diagnosis: C34.11 - Malignant neoplasm of upper lobe, right bronchus or lung, Diagnosed 11/01/2025 (Active) C79.51 - Secondary malignant neoplasm of bone, Diagnosed 11/01/2025 (Active) Radiotherapy to date: Course: Lumbar/pelvis, Treatment Site: Lumbar/pelvis, Ref. ID: [id number], Energy: 15X, Dose/Fx (cGy): 300, #Fx: , Dose Correction (cGy): 0, Total Dose Delivered (cGy): 300, Start Date: 11/06/2025, Elapsed Days: 0 Reason for visit: The patient is being seen today as part of their regularly scheduled weekly on treatment visits to assess for acute toxicities from radiotherapy. Review of Systems: This is an unfortunate 65-year-old male with a new diagnosis of metastatic lung cancer with mets to the liver and multiple bone sites. He is scheduled for a PET on Wednesday to officially stage him with imaging studies Vital Signs: Performed on 11/06/2025 1:53 PM BMI - 24.645 kg/m2 (high), Height - 73 in, Weight - 186.8 lbs, Temperature - 98.6 f, Pulse - 92 /min, Respiration - 18 /min, O2 Sat - 98 %, Pain - 5, Fatigue - 0 and BP - 149/ 89 mm(hg)(high/). Physical Exam: AAOx3. Skin intact. Imaging: Radiation therapy imaging related to accurate target localization (i.e. KV, MV and CBCT) was reviewed. Appropriate changes, if any, were made to ensure treatment accuracy. Plan: Continue XRT. Patient refuses chemotherapy. Signed by: Mark Hitchcock 11/06/2025 2:54:29 PM
--- NOTE | 2025-11-09 11:51 | PETR_ITS ---
PROCEDURE INFORMATION: Exam: PET/CT Skull Base to Mid-thigh Exam date and time: 11/09/2025 12:32 PM Age: 65 years old Clinical indication: Abnormal findings; Multiple pulmonaryl nodules LABS AND CLINICAL REPORTS: Glucose: 100 mg/dl Treatment strategy for malignancy (PET staging): Initial Staging (PI) TECHNIQUE: Imaging protocol: Following at least four-hour fasting and following the injection of radiopharmaceutical, low dose CT images were obtained. Then, PET images were obtained. Attenuation corrected images were constructed using the CT scan. Fused images of PET and CT were reviewed. The standardized uptake values (SUV) reported below are maximum values within a region of interest, expressed in gm/ml. Exam includes orbital meatal line to mid-thigh. SUV normalization method: BodyWeight Radiopharmaceutical: 10.7 mCi F-18 FDG (Fluorodeoxyglucose), IV. Time of imaging post radiopharmaceutical administration: 50 minutes Injection site: left ac COMPARISON: CT chest ION (PULM ONLY) 30360 10/19/2025 11:30 AM FINDINGS: Brain: Visualized brain has normal physiologic uptake. Pharynx: No abnormal uptake. Larynx: No abnormal uptake. Lungs, pleura and trachea: Hypermetabolic right upper lobe mass measuring approximately 6.1 x 7.8 x 8.1 cm, maximum SUV 10.2. There is a central area of photopenia which may indicate necrosis. There are scattered internal punctate calcifications. The mass results in retraction and bulging of the oblique fissure and is infiltrative in appearance, with infiltrative FDG uptake along the right hilar region. There is also mild dependent ground-glass attenuation along the right lower lobe with increased FDG uptake above background lung parenchyma, maximum SUV 3.3. Heart: Normal physiologic uptake. Severe coronary artery calcifications. Mediastinal space: No abnormal uptake. Liver: Multifocal ill-defined hepatic lesions with increased FDG uptake, consistent with metastases (at least 10-12 lesions involving both hepatic lobes). The largest lesion measures 3.6 cm in the right hepatic lobe between segments VIII and VII and has a maximum SUV of 11.5 with an area of central photopenia suggestive of internal necrosis. Gallbladder and biliary ducts: No abnormal uptake. Pancreas: No abnormal uptake. Spleen: No abnormal uptake. Adrenal glands: No abnormal uptake. Kidneys and ureters: Normal physiologic uptake. Stomach and bowel: No abnormal uptake. Reproductive: Coarse prostate calcifications, nonspecific. Vasculature: No abnormal uptake. Lymph nodes: enlarged left level 2A lymph node with increased metabolic activity, maximum SUV 4.7. Mediastinal and right hilar lymphadenopathy, maximum SUV 18.5. Hypermetabolic gutierrez hepatis lymphadenopathy, maximum SUV 8.6. Hypermetabolic left common iliac lymph nodes, maximum SUV 9.0. Skeleton: Multifocal osseous metastases throughout the cervical, thoracic and lumbar spine, involving the bony pelvis with extensive involvement of the left iliac bone and sacrum, the left anterior 2nd rib and bilateral scapula. The larger lesions demonstrate a marked lytic component with soft tissue. There is pronounced hypermetabolic soft tissue expansion most marked along the bony pelvis and the L5 vertebral body, maximum SUV 17.9. There is likely epidural tumor extension at L5-S2. There are pathologic compression fractures of L2 and T8. Soft tissues: Expansile soft tissue components extend into the local soft tissues of the pelvis. Otherwise no abnormal uptake in the visualized head, neck, chest, abdomen, pelvis, and extremities. METRICS: Mediastinal blood pool: Mean SUV of 2.2 Liver uptake: Mean SUV of 2.3 PET/PET skull to thigh INIT [id number] IMPRESSION: 1. Large hypermetabolic 8.1 cm right upper lobe mass consistent with neoplasm. There is an area of central necrosis, as well as local infiltrative changes extending into the right hilar region. 2. Mild dependent mildly hypermetabolic ground-glass attenuation along the right lower lobe is favored to be inflammatory, although tumoral infiltration is not definitively excluded. Recommend close attention on follow-up imaging. 3. Multifocal hepatic metastases (at least 10-12 lesions involving both hepatic lobes). The largest lesion measures 3.6 cm between segments 7/8 and has a small area of central necrosis. 4. Multifocal lytic osseous metastases throughout the axial and appendicular skeleton, as described above. There are large expansile soft tissue lytic lesions predominantly in the bony pelvis, sacrum and lower lumbar spine with likely epidural tumor extension at L5-S2. There are pathologic compression fractures of L2 and T8.
--- NOTE | 2025-11-13 14:16 | ONCRAD TMN_ITS ---
Radiation Oncology Weekly Treatment Management Patient: Mark Carrera MR#: [id number] : 1960 Attending Physician: Mark Hitchcock Date of Service: 11/13/2025 Referring Physician(s) : Dr. Escalera Diagnosis: C34.11 - Malignant neoplasm of upper lobe, right bronchus or lung, Diagnosed 11/01/2025 (Active) C79.51 - Secondary malignant neoplasm of bone, Diagnosed 11/01/2025 (Active) Radiotherapy to date: Course: Lumbar/pelvis, Treatment Site: Lumbar/pelvis, Ref. ID: CTV, Energy: 15X, Dose/Fx (cGy): 300, #Fx: 6 / 10, Dose Correction (cGy): 0, Total Dose Delivered (cGy): 1,800, Start Date: 11/06/2025, Elapsed Days: 7 Reason for visit: The patient is being seen today as part of their regularly scheduled weekly on treatment visits to assess for acute toxicities from radiotherapy. Review of Systems: Patient states he feels much better related to pain in his pelvis. It was originally a 10 on a 10 point scale but now it is 4 on a 10 point scale. He asked about the results of the PET scan that was performed on 1218 and ordered by pulmonology. They called him yesterday with the results. He has questions about a liver transplant which is out of the question and he is awaiting genetic testing to come back to see what type of chemo may be offered. Vital Signs: Performed on 11/13/2025 1:04 PM BMI - 24.355 kg/m2 (high), Height - 73 in, Weight - 184.6 lbs, Temperature - 97.5 f, Pulse - 88 /min, Respiration - 17 /min, O2 Sat - 98 %, Pain - 4, Fatigue - 0 and BP - 108/ 71 mm(hg). Physical Exam: AAO x 3. Skin intact. Imaging: Radiation therapy imaging related to accurate target localization (i.e. KV, MV and CBCT) was reviewed. Appropriate changes, if any, were made to ensure treatment accuracy. Plan: Continue XRT. Patient will complete palliative XRT to the pelvis on MO will call him when genetic testing has been completed Signed by: Mark Hitchcock 11/13/2025 2:13:57 PM
--- NOTE | 2025-11-20 15:31 | ONCRAD TMN_ITS ---
Radiation Oncology Weekly Treatment Management Patient: Mark Carrera MR#: [id number] : 1960 Attending Physician: Mark Hitchcock Date of Service: 11/20/2025 Referring Physician(s) : Dr. Escalera Diagnosis: C34.11 - Malignant neoplasm of upper lobe, right bronchus or lung, Diagnosed 11/01/2025 (Active) C79.51 - Secondary malignant neoplasm of bone, Diagnosed 11/01/2025 (Active) Radiotherapy to date: Course: Lumbar/pelvis, Treatment Site: Lumbar/pelvis, Ref. ID: CTV, Energy: 15X, Dose/Fx (cGy): 300, #Fx: 8 / 10, Dose Correction (cGy): 0, Total Dose Delivered (cGy): 2,400, Start Date: 11/06/2025, End Date: 11/19/2025, Elapsed Days: 13 Reason for visit: The patient is being seen today as part of their regularly scheduled weekly on treatment visits to assess for acute toxicities from radiotherapy. Review of Systems: Pain is 5 out of 10 in the back and has improved. He completes treatment tomorrow. He denies any new bony tenderness. Vital Signs: Performed on 11/20/2025 3:13 PM BMI - 24.672 kg/m2 (high), Height - 73 in, Weight - 187 lbs, Temperature - 98 f, Pulse - 90 /min, Respiration - 17 /min, O2 Sat - 96 %, Pain - 5, Fatigue - 0 and BP - 128/ 80 mm(hg). Physical Exam: AAO x 3. Skin intact Imaging: Radiation therapy imaging related to accurate target localization (i.e. KV, MV and CBCT) was reviewed. Appropriate changes, if any, were made to ensure treatment accuracy. Plan: Continue XRT Completes treatment tomorrow. RTC at the end of November or sooner if need be. Signed by: Mark Hitchcock 11/20/2025 3:29:48 PM
--- NOTE | 2025-11-21 14:20 | N.ONRD TS_ITS ---
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 ID: CTV, Energy: 15X, Dose/Fx (cGy): 300, #Fx: , Dose Correction (cGy): 0, Total Dose Delivered (cGy): 3,000, Start Date: 11/06/2025, End Date: 11/21/2025, Elapsed Days: 15 Clinical Summary: The patient tolerated RT well. Pain is 5 out of 10 in the back and has improved. He denies any new bony tenderness. Plan: End of treatment today. Continue on the above medication until the skin reaction resolves. Follow up in one month. Signed by: Mark Hitchcock>11/21/2025 2:19:14 PM <<Signature on File>>
== END 2025-11-21 23:59 | disposition home or self-care (01) ==
PROVIDERS: PCP Family Medicine; Visit Provider Radiology Radiation Oncology
DX: Z51.0 Encounter for antineoplastic radiation therapy (principal); C34.11 Malignant neoplasm of upper lobe, right bronchus or lung; C79.51 Secondary malignant neoplasm of bone; L58.0 Acute radiodermatitis
CPT/HCPCS: 77290; 77295; 77300; 77334; 77336; 77387; 77412; 78815; 99024; 99205; A9552